=== PATIENT | male | born 1980 | race Caucasian/White ===

== ENCOUNTER 2018-07-03 11:53 | Emergency (ER) | payer OTHER ==
[~2018-07-03] VITALS: Ht 175.3 cm; Wt 74.8 kg
[2018-07-03 12:00] VITALS: BP 134/82
--- NOTE | 2018-07-03 12:29 | RAD ---
EXAM: Right foot, 3 views. HISTORY: Pain. COMPARISON: None. FINDINGS: 3 views of the right foot are obtained. There is slight cortical thickening involving the mid aspect of the third metatarsal, likely due to a healed or healing fracture. There is no acute fracture, dislocation or subluxation. IMPRESSION: 1. Suspected healed or healing mid third metatarsal fracture. 2. No acute osseous finding. Electronically signed by: Taryn De La Cruz MD (07/03/2018 12:26 PM) [place] [id number]
--- NOTE | 2018-07-03 12:39 | PHYS DOC ---
Past History Past Medical History: Other Past Surgical History: Appendectomy, Other Alcohol Use: Occasionally Drug Use: None Adult General Chief Complaint Chief Complaint: FOOT INJURY PAIN HPI HPI Patient is a 38-year-old male who presents to the chief complaint right foot pain. Patient states that the pain isn't present for the last 1 week. Patient states that he had a midfoot fracture previously and said he wanted to ensure that there is no fracture currently. Patient says that the pain is in the lateral plantar surface of the right foot. Patient denies injury. Patient states that he recently restarted running again. Patient states that the pain is usually when he walks barefoot and of the pain is relieved when he walks and bruits or sugars. Review of Systems Review of Systems Constitutional: Denies fever or chills HENT: Denies nasal congestion, sore throat, sinus tenderness Respiratory: Denies cough or shortness of breath Cardiovascular: Denies CP Musculoskeletal: Denies back pain. Complains of right foot pain Skin: Denies rash or skin lesions Neurologic: Denies headache, focal weakness or sensory changes Complete systems were reviewed and found to be within normal limits, except as documented in this note. Allergies Allergies Allergies Coded Allergies Type Severity Reaction Last Updated Verified No Known Drug Allergies 07/03/18 No Physical Exam Physical Exam Constitutional: Well developed, well nourished, no acute distress, non-toxic appearance. HENT: Normocephalic, atraumatic, normocaphalic Eyes: EOMI Neck: Normal range of motion, no tenderness, supple Resp: No resp distress tension Skin: Warm, dry, no erythema, no rash. Back: No tenderness, no CVA tenderness. Extremities: No tenderness, ROM intact, no edema. Neurologic: Alert and oriented X 3 Current Patient Data Vital Signs Vital Signs Date Time Temp Pulse Resp B/P (MAP) Pulse Ox O2 Delivery O2 Flow Rate FiO2 07/03/18 12:00 97.6 74 20 100 Room Air EKG EKG [] Radiology/Procedures Radiology/Procedures EXAM: Right foot, 3 views. HISTORY: Pain. COMPARISON: None. FINDINGS: 3 views of the right foot are obtained. There is slight cortical thickening involving the mid aspect of the third metatarsal, likely due to a healed or healing fracture. There is no acute fracture, dislocation or subluxation. IMPRESSION: 1. Suspected healed or healing mid third metatarsal fracture. 2. No acute osseous finding. Electronically signed by: Taryn De La Cruz MD (07/03/2018 12:26 PM) [facility] Course & Med Decision Making Course & Med Decision Making Pertinent Imaging studies reviewed. (See chart for details Ordered x-ray of the right foot. X-ray of the right foot does not show any acute fractures. There is a healed third digit fracture. Discussed results and plan of care with patient Patient follow up with PCP in one to 2 days. Appropriate discharge instructions given to patient attended to immediately seek immediate medical evaluation. Dragon Disclaimer Dragon Disclaimer This electronic medical record was generated, in whole or in part, using a voice recognition dictation system. Departure Departure: Impression: Primary Impression: Foot pain, right Disposition: 01 HOME, SELF-CARE Condition: STABLE Referrals: CHEMA KATZ (PCP) Follow up in 1-2 days Patient Instructions: Foot Contusion, [id number] Additional Instructions: Please follow up with PCP 1-2 days. Please return to the ED if symptoms worsen or if any concerns. MARIA M CALLAWAY DO Jul 03, 2018 12:39
== END 2018-07-03 12:57 | disposition home or self-care (01) ==
LOC: ER 11:53
DX: M79.671 Pain in right foot (principal)
CPT/HCPCS: 73630; 99283